=== PATIENT | female | born 1990 | race Caucasian/White ===

== ENCOUNTER 2020-03-11 13:49 | Inpatient (IN) | payer BC ==
[~2020-03-11] VITALS: Ht 160 cm; Wt 103.0 kg
[2020-03-11] MEDS: D5%-LACTATED RINGERS 1,000 ML IV SCH (20:01)
[2020-03-11] MEDS ORDERED: OXYTOCIN 30U/ 0.9% NaCL 500ML 500 ML IV ONE (20:01)
[2020-03-11] MEDS ORDERED: OXYTOCIN 30U/ 0.9% NaCL 500ML 500 ML IV PRN (20:01)
[2020-03-11] MEDS: LACTATED RINGERS 1,000 ML IV SCH (20:10)
[2020-03-11] MEDS ORDERED: MISOPROSTOL 200 MCG TABLET ONE (20:19)
[2020-03-11] MEDS ORDERED: MISOPROSTOL 25 MCG TABLET ONE (20:19)
[2020-03-11] MEDS ORDERED: NEWBORN KIT ONE (20:19)
[2020-03-11] MEDS ORDERED: OXYTOCIN 30U/ 0.9% NaCL 500ML 500 ML ONE (20:19)
[2020-03-11] MEDS ORDERED: LIDOCAINE 1%, 20ML ONE (20:19)
[2020-03-11] MEDS ORDERED: PLEASE ENTER HEIGHT AND WEIGHT MC SCH (20:30)
[2020-03-11] MEDS ORDERED: TERBUTALINE 1 MG/ML, 1ML IVPush PRN (20:30)
[2020-03-11] MEDS ORDERED: CALCIUM CARBONATE 500 MG TAB.CHEW PO PRN (20:30)
[2020-03-11] MEDS ORDERED: FENTANYL PF 100 MCG/2ML IV PRN (20:30)
[2020-03-11] MEDS ORDERED: PLEASE ENTER ALLERGIES MC SCH (20:30)
[2020-03-11] MEDS ORDERED: ONDANSETRON 2MG/ML, 2ML IVPush PRN (20:30)
[2020-03-11] MEDS ORDERED: MISOPROSTOL 25 MCG TABLET VG PRN (20:30)
[2020-03-11] MEDS ORDERED: TERBUTALINE 1 MG/ML, 1ML SQ PRN (20:30)
[2020-03-11 20:37] LABS: BASOPHILS # (AUTO) 0.04 x10^3/uL (0-0.1); BASOPHILS % (AUTO) 0 % (0-1); EOSINOPHILS # (AUTO) 0.07 x10^3/uL (0-0.4); EOSINOPHILS % (AUTO) 1 % (1-7); LYMPHOCYTES # (AUTO) 1.94 x10^3/uL (1-3.4); LYMPHOCYTES % (AUTO) 15 % (22-44); MD NO; MEAN CORPUSCULAR HEMOGLOBIN 30.5 pg (27.0-34.8); MEAN CORPUSCULAR HGB CONC 32.8 g/dL (32.4-35.8); MEAN PLATELET VOLUME 10.7 fL (7.4-10.4); MONOCYTES # (AUTO) 0.79 x10^3/uL (0.2-0.8); MONOCYTES % (AUTO) 6 % (2-9); NEUTROPHILS # (AUTO) 9.83 x10^3/uL (1.8-6.8); NEUTROPHILS % (AUTO) 78 % (42-75); PLATELET COUNT 224 x10^3/uL (130-400); RED BLOOD COUNT 4.29 x10^6/uL (3.82-5.3); RED CELL DISTRIBUTION WIDTH 15.1 % (9.6-15.2)
[2020-03-11 20:38] VITALS: BP 125/69
[2020-03-12] MEDS: LACTATED RINGERS 1,000 ML IV SCH ×3 (02:43→12:57)
[2020-03-12] MEDS: D5%-LACTATED RINGERS 1,000 ML IV SCH (09:13)
[2020-03-12] MEDS ORDERED: LACTATED RINGERS 1,000 ML INTUTE SCH (10:00)
[2020-03-12] MEDS ORDERED: FENTANYL PF 100 MCG/2ML ONE ×3 (10:50→13:06)
[2020-03-12] MEDS: FENTANYL PF 100 MCG/2ML IVPush PRN ×2 (10:52→12:20)
[2020-03-12] MEDS ORDERED: FENTANYL/BUPIV./NS/PF 250 ML EPIDCONT ONE (13:07)
[2020-03-12] MEDS ORDERED: BUPIVACAINE 0.25% ONE (13:07)
[2020-03-12] MEDS ORDERED: EPHEDRINE 50 MG/ML, 1ML ONE (13:47)
[2020-03-12] MEDS ORDERED: EPHEDRINE 50 MG/ML, 1ML IVPush ONE (14:00)
[2020-03-12] MEDS: OXYTOCIN 30U/ 0.9% NaCL 500ML 500 ML IV SCH (18:19)
[2020-03-12] MEDS ORDERED: ACETAMINOPHEN 325 MG TABLET PO PRN ×2 (18:30)
[2020-03-12] MEDS ORDERED: MISOPROSTOL 200 MCG TABLET PR PRN (18:30)
[2020-03-12] MEDS ORDERED: ONDANSETRON 2MG/ML, 2ML IV PRN (18:30)
[2020-03-12] MEDS ORDERED: SIMETHICONE 80 MG CHEW TAB PO PRN (18:30)
[2020-03-12] MEDS ORDERED: OXYcodone/APAP 5/325MG TABLET PO PRN ×2 (18:30)
[2020-03-12] MEDS ORDERED: OXYTOCIN 30U/ 0.9% NaCL 500ML 500 ML ONE (19:34)
[2020-03-12 22:10] VITALS: BP 103/68
[2020-03-13 01:50] VITALS: BP 104/70
[2020-03-13] MEDS: OXYTOCIN 30U/ 0.9% NaCL 500ML 500 ML IV SCH ×2 (04:19→21:15)
[2020-03-13 05:46] LABS: BASOPHILS % (AUTO) 0 % (0-1); EOSINOPHILS % (AUTO) 0 % (1-7); LYMPHOCYTES % (AUTO) 11 % (22-44); MEAN CORPUSCULAR HEMOGLOBIN 30.6 pg (27.0-34.8); MEAN CORPUSCULAR HGB CONC 33.8 g/dL (32.4-35.8); MEAN PLATELET VOLUME 10.9 fL (7.4-10.4); MONOCYTES % (AUTO) 7 % (2-9); NEUTROPHILS % (AUTO) 82 % (42-75); PLATELET COUNT 187 x10^3/uL (130-400); RED BLOOD COUNT 3.56 x10^6/uL (3.82-5.3); RED CELL DISTRIBUTION WIDTH 15.3 % (9.6-15.2)
[2020-03-13 06:15] LABS: MD NO
[2020-03-13 08:00] VITALS: BP 113/76
[2020-03-13] MEDS: PRENATAL VIT/IRON/FA 1 EACH TABLET PO SCH (09:32)
[2020-03-13] MEDS: DOCUSATE 100 MG CAPSULE PO PRN ×2 (09:32→21:04)
[2020-03-13] MEDS: IBUPROFEN 600 MG TABLET PO PRN ×2 (12:52→21:04)
[2020-03-13 12:57] VITALS: BP 112/76
[2020-03-13 17:00] VITALS: BP 113/74
[2020-03-13 21:15] VITALS: BP 119/77
[2020-03-14] MEDS: OXYTOCIN 30U/ 0.9% NaCL 500ML 500 ML IV SCH (00:19)
[2020-03-14] MEDS: IBUPROFEN 600 MG TABLET PO PRN (05:03)
[2020-03-14 07:30] VITALS: BP 114/77
[2020-03-14] MEDS ORDERED: IBUP-1222 PO (08:54)
[2020-03-14] MEDS ORDERED: DIPH,PERTUSS(ACELL),TET VAC/PF NC IM-VACC ONE ×2 (09:16→09:30)
[2020-03-14] MEDS: DOCUSATE 100 MG CAPSULE PO PRN (09:19)
[2020-03-14] MEDS: PRENATAL VIT/IRON/FA 1 EACH TABLET PO SCH (09:19)
== END 2020-03-14 10:24 | disposition home or self-care (01) | DRG 807 ==
LOC: LDIP 19:52 → 2NW 03-12 21:35
PROVIDERS: ADMIT Obstetrics & Gynecology; ATTEND Obstetrics & Gynecology
PROC: 10H07YZ Insertion of Other Device into Products of Conception, Via Natural or Artificial Opening (ICD-10-PCS; 2020-03-11)
PROC: 10E0XZZ Delivery of Products of Conception, External Approach (ICD-10-PCS; principal; 2020-03-12)
PROC: 0KQM0ZZ Repair Perineum Muscle, Open Approach (ICD-10-PCS; 2020-03-12)
PROC: 3E0R3BZ Introduction of Anesthetic Agent into Spinal Canal, Percutaneous Approach (ICD-10-PCS; 2020-03-12)
PROC: 00HU33Z Insertion of Infusion Device into Spinal Canal, Percutaneous Approach (ICD-10-PCS; 2020-03-12)
DX: O24.424 Gestational diabetes mellitus in childbirth, insulin controlled (principal); Z37.0 Single live birth; Z20.828 Contact with and (suspected) exposure to other viral communicable diseases; O70.1 Second degree perineal laceration during delivery; Z3A.38 38 weeks gestation of pregnancy
CPT/HCPCS: 36415; 82962; 85025; 86592; 86850; 86900; 87635; 90715; G0378; J3010; J3490; J2590; J7120; J7121